=== PATIENT | male | born 1990 | race Caucasian/White ===

== ENCOUNTER 2021-06-20 21:33 | Emergency (ER) | payer BC ==
[2021-06-20] MEDS ORDERED: Aspirin 81 MG Tab.Chew PO ONE (21:57)
[2021-06-20 22:13] LABS: CHLORIDE,CL 104 mEq/L (98-106); SODIUM,NA 142 mEq/L (136-145)
[2021-06-20] MEDS ORDERED: Morphine 2 MG/ML SYRINGE IM ONE (22:54)
== END 2021-06-20 23:15 | disposition home or self-care (01) ==
LOC: CC.ED 21:33
DX: R07.9 Chest pain, unspecified (principal); R00.1 Bradycardia, unspecified; E78.00 Pure hypercholesterolemia, unspecified; R94.31 Abnormal electrocardiogram [ECG] [EKG]; Z87.891 Personal history of nicotine dependence
CPT/HCPCS: 36415; 71046; 80053; 84484; 85025; 85610; 93005; 96372; 99284; 99285; A9270; J2270